=== PATIENT | female | born 1985 | race Caucasian/White ===

== ENCOUNTER 2017-11-12 14:44 | Emergency (ER) | payer SELFPAY ==
[~2017-11-12] VITALS: Ht 162.6 cm; Wt 68.0 kg
[~2017-11-12 14:44] MED LIST: CIPRO500 MG PO; DICYCLOMINE HCL20 MG PO; METRONIDAZOLE500 MG PO
[2017-11-12] MEDS ORDERED: ONDANSETRON HCL INJ 2 MG/ML VIAL IV STA (15:01)
[2017-11-12] MEDS ORDERED: MORPHINE SULFATE INJ 4 MG/ML INJ IV STA (15:01)
[2017-11-12] MEDS ORDERED: SODIUM CHLORIDE 0.9% 1000ML 1,000 ML IV STA (15:01)
[2017-11-12 15:51] LABS: BASOPHILS % 0.4 % (0.0-1.0); EOSINOPHILS # (AUTO) 0.2 (0.0-0.4); EOSINOPHILS % 2.8 % (0.0-6.0); HEMATOCRIT 34.3 % (34.2-44.1); HEMOGLOBIN 11.2 g/dL (12.0-16.0); LYMPHOCYTES % 27.4 % (18.0-39.1); MEAN CORPUSCULAR HGB CONC 32.7 g/dL (31-35); MONOCYTES # (AUTO) 0.5 (0.2-0.8); MONOCYTES % 7.1 % (4.4-11.3); NEUTROPHILS # (AUTO) 4.5 (2.1-6.9); NEUTROPHILS % 61.9 % (38.7-80.0); PLATELET COUNT 267 x10e3/uL (140-360); RED BLOOD COUNT 3.73 x10e6/uL (3.6-5.1); RED CELL DISTRIBUTION WIDTH 11.7 % (11.7-14.4)
[2017-11-12 16:07] LABS: ALANINE AMINOTRANSFERASE 16 IU/L (0-55); ALBUMIN 3.7 g/dL (3.5-5.0); ALBUMIN/GLOBULIN RATIO 1.3 (0.8-2.0); ALKALINE PHOSPHATASE 53 IU/L (40-150); ANION GAP 13.8 mmol/L (8-16); BLOOD UREA NITROGEN 15 mg/dL (7-26); BUN/CREATININE RATIO 21 (6-25); CARBON DIOXIDE 24 mmol/L (22-29); CHLORIDE 108 mmol/L (98-107); CREATININE, SERUM 0.71 mg/dL (0.57-1.11); EST GLOMERULAR FILTRATION RATE > 60 ML/MIN (60-); GLUCOSE 100 mg/dL (74-118); POTASSIUM 3.8 mmol/L (3.5-5.1); SODIUM 142 mmol/L (136-145)
[2017-11-12 16:27] LABS: BILIRUBIN,URINE NEGATIVE (NEGATIVE); CLARITY,URINE HAZY (CLEAR); COLOR,URINE YELLOW (YELLOW); KETONES,URINE NEGATIVE (NEGATIVE); LEUKOCYTE ESTERASE ,URINE NEGATIVE (NEGATIVE); NITRITE,URINE NEGATIVE (NEGATIVE); PROTEIN,URINE DIPSTICK TRACE (NEGATIVE); URINE UROBILINOGEN 1 mg/dL (0.2 - 1)
[2017-11-12 16:30] LABS: EPITHELIAL CELLS,URINE MANY /LPF
[2017-11-12 16:32] LABS: RBC,URINE 21-50 /HPF (0-5)
[2017-11-12 16:33] LABS: WBC,URINE (MAN) 0-5 /HPF (0-5)
[2017-11-12 16:34] LABS: AMORPHOUS SEDIMENT,URINE FEW (FEW); TRANSITIONAL EPI CELLS,URINE FEW
[2017-11-12 17:00] VITALS: BP 121/87
== END 2017-11-12 17:03 | disposition home or self-care (01) ==
LOC: ER 14:44
DX: N92.0 Excessive and frequent menstruation with regular cycle (principal); N94.6 Dysmenorrhea, unspecified
CPT/HCPCS: 36415; 80053; 81001; 84702; 85025; 86850; 86900; 99284; J2270; J2405; J7030